=== PATIENT | female | born 1960 | race Caucasian/White ===

== ENCOUNTER → 2019-12-28 | Day surgery (SDC) | payer OTHER ==
[2019-12-27 14:09] VITALS: BMI 34.2
[~2019-12-28] MED LIST: Bupivacaine HCl 0.5%/Epinephrine 1:200,000/PF 30 ml Vial ONE; Fentanyl 100 MCG/2 ML VIAL ONE; HYDROcodone/Acetaminophen 5/325 mg Tablet ONE; Lidocaine 1% PF 5 ML VIAL ONE; Lidocaine 1% w/Epinephrine 1:100K 20 ML VIAL ONE; Lidocaine 2% w/Epinephrine 1:200K 20 ML VIAL ONE; Metoclopramide HCl 10 MG/2 ML VIAL ONE; Ondansetron PF 4 MG/2 ML Vial ONE; PHENYLEPHRINE-NS 100 MCG/ML 10 ML SYRINGE ONE; PROPOFOL 20 ML ONE; PROPOFOL 200 MG/20 ML VIAL ONE
[2019-12-28 07:40] LABS: #Eosinphils 0.1 thou/uL (0.0-0.7); #Lymphocytes 1.9 thou/uL (1.20-3.40); #Monocytes 0.5 thou/uL (0.11-0.59); #Neutrophils 2.7 thou/uL (1.40-6.50); %Basophils 0.9 % (0.0-1.0); %Eosinophils 2.3 % (0.0-10.0); %Lymphocytes 35.8 % (21.0-51.0); %Monocytes 9.7 % (0.0-10.0); %Neutrophils 51.2 % (42.0-75.0); Hemoglobin 13.1 g/dL (12.0-16.0); Mean Corpuscular HGB CONC 33.1 g/dL (32.0-36.0); Mean Corpuscular Hemoglobin 30.2 pg (27.0-31.0); Platelet Count 203 thou/uL (130-400); RBC Distribution Width 12.7 % (11.5-14.5); Red Blood Cell (RBC) Count 4.34 mill/uL (4.20-5.40); White Blood Cell (WBC) Count 5.3 thou/uL (4.8-10.8)
[2019-12-28 07:56] LABS: Anion Gap 12 mmol/L (10-20); BUN (Urea Nitrogen) 17 mg/dL (9.8-20.1); Calc. Creatinine Clearance 100 mL/min (70-130); Calcium 9.2 mg/dL (7.8-10.44); Carbon Dioxide 27 mmol/L (23-31); Chloride 107 mmol/L (98-107); Estimated GFR-MDRD 60; Glucose 87 mg/dL (80-115); Potassium 4.4 mmol/L (3.5-5.1); Sodium 142 mmol/L (136-145)
--- NOTE | 2019-12-28 12:25 | OP ---
DATE OF PROCEDURE: 12/28/2019 POSTOPERATIVE DIAGNOSES: Right knee arthritis with large loose bodies and she had a posterior horn medial meniscus tear. POSTOPERATIVE DIAGNOSES: Right knee arthritis with large loose bodies and she had a posterior horn medial meniscus tear. PROCEDURES PERFORMED: Right knee arthroscopy with debridement and shaving followed by removal of multiple large loose bodies. The largest being 2.5 x 2.5 cm. The other two large pieces measuring a centimeter and a half each. We also did a partial medial meniscectomy. ANESTHESIA: She had a general anesthetic and a local knee block. DISPOSITION: She went to recovery room in stable condition. INDICATIONS: A 59-year-old female, who was in her normal state of health when she felt a cracking sensation and since that time, she has had severe pain in the knee as well as swelling. She has been relegated to using crutches or just sitting in a chair. At this time, she came in, was evaluated and found to have loose bodies in the knee and opted to have surgery. DESCRIPTION OF PROCEDURE: After all appropriate consent forms were explained and signed, she was taken back to the operating room and at this time was given general anesthetic. Once the level of anesthesia was appropriate, tourniquet was placed on the right thigh. Leg was then prepped and draped in standard surgical fashion. Limb was exsanguinated and tourniquet was taken up to 300 mmHg. Inferolateral portal was established. Scope was placed into the knee joint. A needle localization technique was then used to make a medial working portal. Diagnostic arthroscopy commenced in the notch. ACL and PCL were intact. There was a large osteophyte on the tibia. This was taken down with a shaver, so as knee would go in full extension. Medial compartment was evaluated. It was in global grade 3 and 4 changes on the medial femoral condyle. The tibial plateau was in pretty good condition. There was a posterior horn medial meniscus tear. It was taken down to a stable base with meniscal biter and shaver. As we went to the lateral compartment, we noticed a large loose body. This was removed with the grasper, again measured approximately a centimeter and a half in diameter. This looked like it came out of the tibia and was rubbing a trough on the femur. The remaining lateral compartment other than the large area of cartilage missing from the tibia and the groove on the femur was in good shape. Lateral meniscus overall was intact. The gutters were swept through. There was a significant amount of synovitis. This was debrided with a shaver in the SERFAS energy probe. We got to the suprapatellar pouch. We noted some large loose osteophytes superior to the patella. There was one large one medially, which was taken down from a small area of soft tissue that was connecting it. This was removed by extending our medial portal significantly and this was nearly an inch long and an inch wide. Once this was done, we then had another piece lateral on the patella. A needle was used to make an accessory portal just lateral to the patella giving us access to insert a grasper and shaver and this piece was removed as well. Again, the shaver and the SERFAS energy were used to coagulate any brisk venous bleeding as well as smoothed off this area. The patient was also noted to have some large osteophytes on the medial and lateral femur and these were left alone as again she does have an underlying arthritic knee, but it was felt that she may be made better by removing the acute loose bodies. At this time, the knee scope was removed. The knee was drained. We then used deep Vicryl, 2-0 Vicryl, and nylon sutures on all our portals as well as our extended medial portal. A bulky sterile dressing was applied after infiltrating the incisions with lidocaine with epinephrine for postop pain relief. Once the dressing was on, tourniquet was let down. Toes pinked up nicely. The patient was awakened, taken to the recovery room in stable condition. All counts were correct at the end of the case. She did receive preoperative IV antibiotics. Job ID: [id number] [facility]
--- NOTE | 2019-12-28 15:57 | EKG ---
Test Reason : PREOP Blood Pressure : / mmHG Vent. Rate : 054 BPM Atrial Rate : 054 BPM P-R Int : 162 ms QRS Dur : 092 ms QT Int : 426 ms P-R-T Axes : 033 035 034 degrees QTc Int : 403 ms Sinus bradycardia Otherwise normal ECG No previous ECGs available Confirmed by DR. Ezequiel LEMOS MD ([id number]) on 12/28/2019 3:57:23 PM Referred By: IERO Confirmed By:DR. Ezequiel LEMOS MD
== END ==
LOC: SDC 06:47
PROVIDERS: ATTEND Orthopaedic Surgery
PROC: 0SBC4ZZ Excision of Right Knee Joint, Percutaneous Endoscopic Approach (ICD-10-PCS; principal; 2019-12-28)
DX: M17.11 Unilateral primary osteoarthritis, right knee (principal); M23.221 Derangement of posterior horn of medial meniscus due to old tear or injury, right knee; M25.761 Osteophyte, right knee; F32.9 Major depressive disorder, single episode, unspecified; Z79.899 Other long term (current) drug therapy; Z88.2 Allergy status to sulfonamides; Z88.5 Allergy status to narcotic agent; Z91.048 Other nonmedicinal substance allergy status
CPT/HCPCS: 36415; 80048; 85025; 93005; 93010; J0670; J0690; J2001; J2405; J2704; J2765; J3010

== ENCOUNTER 2024-06-28 10:20 | Outpatient (CLI) | payer MEDICARE, OTHER | END 2024-06-28 10:21 | disposition home or self-care (01) | LOC: SCSMRI 10:20 | PROVIDERS: ATTEND Physician Assistant | DX: M43.12 Spondylolisthesis, cervical region (principal); M50.31 Other cervical disc degeneration, high cervical region; M50.321 Other cervical disc degeneration at C4-C5 level; M50.322 Other cervical disc degeneration at C5-C6 level; M50.222 Other cervical disc displacement at C5-C6 level | CPT/HCPCS: 72141 ==

== ENCOUNTER 2024-08-23 13:58 | Outpatient (CLI) | payer MEDICARE, OTHER ==
[2024-08-23 14:52] LABS: #Basophils 0.03 10x3/uL (0.0-0.2); %Basophils 0.6 % (0.0-1.0); %Eosinophils 1.4 % (0.0-10.0); %Lymphocytes 32.6 % (21.0-51.0); %Monocytes 9.9 % (0.0-10.0); %Neutrophils 55.3 % (42.0-75.0); Hematocrit 38.7 % (36.0-47.0); Hemoglobin 12.7 g/dL (12.0-16.0); Mean Corpuscular HGB CONC 32.8 g/dL (32.0-36.0); Mean Corpuscular Hemoglobin 29.5 pg (27.0-31.0); Mean Platelet Volume 10.1 fL (7.4-10.4); Platelet Count 197 10x3/uL (130-400)
[2024-08-23 15:11] LABS: Anion Gap 11 mmol/L (10-20); BUN (Urea Nitrogen) 18 mg/dL (9.8-20.1); Calc. Creatinine Clearance 0 mL/min (70-130); Calcium 8.9 mg/dL (7.8-10.44); Carbon Dioxide 27 mmol/L (23-31); Chloride 103 mmol/L (98-107); Estimated GFR 81; Glucose 82 mg/dL (80-115); Potassium 4.1 mmol/L (3.5-5.1); Sodium 137 mmol/L (136-145)
== END 2024-08-23 13:59 | disposition home or self-care (01) ==
LOC: LABBT 13:58
PROVIDERS: ATTEND Neurological Surgery
DX: Z01.818 Encounter for other preprocedural examination (principal); M48.02 Spinal stenosis, cervical region
CPT/HCPCS: 80048; 85025

== ENCOUNTER 2024-08-29 05:49 | Day surgery (SDC) | payer MEDICARE, OTHER ==
[2024-08-29] MEDS ORDERED: Thrombin 5000 UNITS/5 ML VIAL ONE (06:09)
[2024-08-29] MEDS ORDERED: Lidocaine 1% PF 5 ML VIAL ONE (06:29)
[2024-08-29] MEDS ORDERED: fentaNYL PF 100 MCG/2 ML SYRINGE ONE ×2 (06:29→08:39)
[2024-08-29] MEDS ORDERED: Rocuronium Bromide 10 MG/ML (10ML VIAL) ONE (06:29)
[2024-08-29] MEDS ORDERED: PROPOFOL 20 ML ONE (06:29)
[2024-08-29] MEDS ORDERED: CEFAZOLIN 2 GM VIAL ONE ×2 (06:31→11:09)
[2024-08-29] MEDS ORDERED: Scopolamine 1 mg/72 hour Patch ONE (06:41)
[2024-08-29] MEDS ORDERED: Famotidine/PF 20 mg/2ml Vial ONE (06:42)
[2024-08-29] MEDS ORDERED: Sterile Water 0 ML ONE (07:07)
[2024-08-29] MEDS ORDERED: Dexamethasone 20 MG/5 ML VIAL ONE ×2 (07:30→10:27)
[2024-08-29] MEDS ORDERED: ePHEDrine Sulfate 50 MG/10 ML VIAL ONE (08:05)
[2024-08-29] MEDS ORDERED: Ondansetron PF 4 MG/2 ML Vial ONE ×2 (08:12→10:27)
[2024-08-29] MEDS ORDERED: Lidocaine 2% PF 5 ML VIAL ONE (08:37)
[2024-08-29] MEDS ORDERED: SUGAMMADEX SODIUM 200 MG/2 ML VIAL ONE (08:39)
[2024-08-29] MEDS ORDERED: Promethazine HCl 25 MG/ML VIAL IM PRN (08:45)
[2024-08-29] MEDS ORDERED: Ondansetron HCl/PF 4 MG/2 ML Vial IVP PRN (08:45)
[2024-08-29] MEDS ORDERED: fentaNYL 50 mcg/mL 1 mL Vial ONE ×2 (09:38→10:04)
[2024-08-29] MEDS ORDERED: Sterile Water 10 ML ONE (09:47)
[2024-08-29] MEDS ORDERED: Sodium Chloride 0.9% 100 ML ONE (11:09)
== END 2024-08-29 12:35 | disposition home or self-care (01) ==
LOC: SDC 05:49
PROVIDERS: ATTEND Neurological Surgery
PROC: 0RG20A0 Fusion of 2 or more Cervical Vertebral Joints with Interbody Fusion Device, Anterior Approach, Anterior Column, Open Approach (ICD-10-PCS; principal; 2024-08-29)
PROC: 0RG2070 Fusion of 2 or more Cervical Vertebral Joints with Autologous Tissue Substitute, Anterior Approach, Anterior Column, Open Approach (ICD-10-PCS; 2024-08-29)
PROC: 0RG20K0 Fusion of 2 or more Cervical Vertebral Joints with Nonautologous Tissue Substitute, Anterior Approach, Anterior Column, Open Approach (ICD-10-PCS; 2024-08-29)
DX: M47.12 Other spondylosis with myelopathy, cervical region (principal); I10 Essential (primary) hypertension; F41.9 Anxiety disorder, unspecified; Z78.0 Asymptomatic menopausal state; Z88.2 Allergy status to sulfonamides; Z88.8 Allergy status to other drugs, medicaments and biological substances; Z88.5 Allergy status to narcotic agent; Z91.048 Other nonmedicinal substance allergy status; Z79.899 Other long term (current) drug therapy
CPT/HCPCS: 20930; 20936; 22551; 22552; 22845; 22853 ×2; C1713 ×4; C1889 ×2; J1100; J2405; J2704; J3010; J3490